=== PATIENT | female | born 1940 | race Caucasian/White ===

== ENCOUNTER 2019-05-19 15:48 | Emergency (ER) | payer OTHER ==
[~2019-05-19] VITALS: Ht 154.9 cm; Wt 86.2 kg
[~2019-05-19 15:48] MED LIST: AMOX500T3 PO; HYDR12.516 PO; METO50TA20 PO; SIMV10TA1 PO
--- NOTE | 2019-05-19 15:49 | NUR ---
PT BIBA to bed 11.
[2019-05-19 15:55] VITALS: BP 155/58
[2019-05-19] MEDS: KETOROLAC 30 MG/ML VIAL IVP ONE (16:14)
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
[2019-05-19] MEDS: MORPHINE SULFATE 4 MG/ML SYR IVP ONE (18:43)
--- NOTE | 2019-05-19 19:09 | NUR ---
REPORT TO BRIAN BRUMFIELD.
[2019-05-19 20:06] VITALS: BP 119/61
--- NOTE | 2019-05-19 20:06 | NUR ---
Patient discharged with v/s stable. Written and verbal after care instructions given and explained. Patient alert, oriented and verbalized understanding of instructions. Ambulatory with steady gait. All questions addressed prior to discharge. ID band removed. Patient advised to follow up with PMD. Rx of MATILDA & BAKARI given. Patient educated on indication of medication including possible reaction and side effects. Opportunity to ask questions provided and answered.
== END 2019-05-19 20:06 | disposition home or self-care (01) ==
LOC: MED 15:48
DX: S01.112A Laceration without foreign body of left eyelid and periocular area, initial encounter (principal); S80.02XA Contusion of left knee, initial encounter; S80.01XA Contusion of right knee, initial encounter; I10 Essential (primary) hypertension; Z98.890 Other specified postprocedural states; Z79.2 Long term (current) use of antibiotics; Z90.49 Acquired absence of other specified parts of digestive tract; W25.XXXA Contact with sharp glass, initial encounter; Y93.89 Activity, other specified; Y92.89 Other specified places as the place of occurrence of the external cause; Y99.8 Other external cause status
CPT/HCPCS: 12013; 90471; 90715; 96374; 96375; 99283; J1885; J2270